=== PATIENT | female | born 1975 | race Asian ===

== ENCOUNTER 2019-12-07 07:41 | Outpatient (REF) | payer MEDICAID, SELFPAY | END 2019-12-07 07:42 | disposition home or self-care (01) | LOC: HO.LAB 07:41 | PROVIDERS: PCP Internal Medicine; Visit Provider Internal Medicine | DX: Z20.828 Contact with and (suspected) exposure to other viral communicable diseases (principal) | CPT/HCPCS: 87635 ==

== ENCOUNTER 2021-07-29 16:16 | Emergency (ER) | payer MEDICAID, SELFPAY ==
--- NOTE | ~2021-07-29 | CT_ITS ---
EXAMINATION: CT HEAD WITHOUT CONTRAST CLINICAL INFORMATION: New onset headache COMPARISON: None TECHNIQUE: Imaging was performed from the skull base to vertex without intravenous administration of contrast. This CT examination was performed using dose optimization techniques as appropriate, variously including the following: *Automated exposure control *Adjustment of mA and/or kV according to patient size (this includes techniques or standardized protocols for targeted exams where dose is matched to indication/reason for exam; i.e. extremities or head) *Use of iterative reconstruction technique Total exam dose length product: 805 mGy-cm FINDINGS: No intra or extra-axial fluid collection, hemorrhage, or mass. No ventriculomegaly. No midline shift or herniation. Basal cisterns are patent. Mancuso-white matter differentiation is maintained. No territorial encephalomalacia. No significant volume loss. There is no abnormal attenuation within the brain parenchyma. No calvarial fracture or soft tissue abnormality. Mastoid air cells are normally aerated. Lobulated mucosal thickening in the maxillary antra and ethmoid air cells. Mild mucosal thickening in the sphenoid sinuses. CT/CT head/brain wo con IMPRESSION: 1. No acute intracranial pathology. 2. Mild paranasal sinus disease. No air-fluid levels.
--- NOTE | ~2021-07-29 | XR_ITS ---
EXAMINATION: XR CHEST CLINICAL INFORMATION: Cough COMPARISON: None TECHNIQUE: 2 views of the chest were obtained. FINDINGS: There is mild cardiac enlargement. There is no evidence of CHF. No infiltrates, effusions or lung masses are seen. XR/XR chest 2V IMPRESSION: Mild cardiac enlargement. No acute intrathoracic disease.
[2021-07-29 16:19] VITALS: BP 176/93; PULSE 66; RESP 20; TEMP 36.4; O2SAT 97; BMI 36.0
[2021-07-29 17:43] VITALS: BP 168/106
[2021-07-29 18:02] VITALS: BP 163/91; PULSE 65; RESP 16; O2SAT 97
--- NOTE | 2021-07-29 18:24 | ECG_ITS ---
Test Reason : HYPERTENSION Blood Pressure : / mmHG Vent. Rate : 076 BPM Atrial Rate : 076 BPM P-R Int : 192 ms QRS Dur : 088 ms QT Int : 432 ms P-R-T Axes : 050 017 021 degrees QTc Int : 486 ms Sinus rhythm with marked sinus arrhythmia with Premature ventricular complexes Cannot rule out Anterior infarct (cited on or before 09-MAR-2018) Abnormal ECG When compared with ECG of 09-MAR-2018 20:18, Premature ventricular complexes are now Present Nonspecific T wave abnormality now evident in Inferior leads T wave inversion less evident in Lateral leads Referred By: Rosina Bhardwaj Electronically Signed By:FARHAN PATEL MD
[2021-07-29 19:05] LABS: Appearance Urine HAZY; Color Urine STRAW; Glucose Urine UA NEG (NEG); Leukocyte Esterase Urine 1+ (NEG); Nitrite Urine NEG (NEG); Specific Gravity - Urine <= 1.005 (1.005-1.025); UACC Culture Trigger YES; Urine Blood 3+ (NEG); Urine Ketones NEG (NEG); Urine Protein NEG (NEG-TRACE)
[2021-07-29 19:10] LABS: UPreg QC Valid YES; Urine Pregnancy NEGATIVE (NEGATIVE)
--- NOTE | 2021-07-29 19:18 | ED.GENADULT ---
HPI - General Adult General Chief complaint: General Medical <BENITA Collins - Last Filed: 07/29/21 21:00> Stated complaint: High BP <BENITA Collins Last Filed: 07/29/21 21:00> Time Seen by Provider: 07/29/21 18:04 <BENITA Collins Last Filed: 07/29/21 21:00> Source: patient <BENITA Collins Last Filed: 07/29/21 21:00> Mode of arrival: ambulatory <BENITA Collins Last Filed: 07/29/21 21:00> Limitations: no limitations <BENITA Collins Last Filed: 07/29/21 21:00> History of Present Illness HPI narrative: 46-year-old female with a history of hypertension and hyperthyroid presents for high blood pressure at home today. Patient has also had ?pressure? in her head. Patient states she woke up with ?pressure? in her head, took her blood pressure and it was 178/110. She took her nifedipine, which she takes daily at 30 mg. Her blood pressure did not go down, then she took her labetalol, which she takes 200 mg twice a day. Her blood pressure was 163/91, so she came in. States her blood pressure normally runs 130/80. No fever, no stiff neck, no headache, no chest pain, no shortness of breath, no abdominal pain, no nausea, vomiting, diarrhea. And no falls. No visual changes. States she has had a cough for 4 days, and had a negative COVID test at home. Her sister 3 weeks ago, states her sister was 8 months and due to complications of hypertension. Patient's last menstrual period started today <BENITA Collins Last Filed: 07/29/21 21:00> Related Data Allergies/adverse reactions: Allergies Allergy/AdvReac Type Severity Reaction Status Date / Time No Known Allergies Allergy Unverified 11/12/19 17:06 [No Known Allergies*] <BENITA Collins Last Filed: 07/29/21 21:00> Review of Systems Constitutional: Constitutional: Denies body ache(s), Denies chills, Denies fatigue, Denies fever(s), Denies headache(s), Denies malaise and Denies weakness <BENITA Collins Last Filed: 07/29/21 21:00> Eyes: Eyes: Denies blurry vision, Denies change in vision, Denies diplopia and Denies loss of vision <BENITA Collins Last Filed: 07/29/21 21:00> ENT: Reports Normal hearing present, Denies vertigo, Denies dizziness, Denies otalgia, Denies headache(s), Denies mouth pain, Denies disequilibrium, Denies post nasal drip, Denies sinus pain, Denies sinus pressure, Denies sore throat and Denies throat swelling <BENITA Collins Last Filed: 07/29/21 21:00> Comments: pressure in head, not headache <BENITA Collins Last Filed: 07/29/21 21:00> Cardiovascular: Cardiovascular: Denies chest pain, Denies syncope, Denies leg edema, Denies lightheadedness, Denies Loss of Consciousness, Denies palpitations and Denies dyspnea <BENITA Collins Last Filed: 07/29/21 21:00> Respiratory: Respiratory: Denies chest congestion, Reports cough and Denies dyspnea <BENITA Collins Last Filed: 07/29/21 21:00> Gastrointestinal: Gastrointestinal: Denies abdominal pain, Denies hematochezia, Denies constipation, Denies diarrhea and Denies vomiting <BENITA Collins Last Filed: 07/29/21 21:00> Musculoskeletal: Musculoskeletal: Reports no additional musculoskeletal complaints, Denies abnormal gait, Denies numbness and Denies tingling <BENITA Collins Last Filed: 07/29/21 21:00> Neurologic: Reports Normal hearing present, Denies Neuro-related abnormal movements, Denies Abnormal speech present, Denies abnormal gait, Denies confusion, Denies vertigo, Denies dizziness, Denies syncope, Denies headache(s), Denies focal weakness, Denies loss of vision, Denies numbness, Denies Other visual disturbances, Denies seizure-like activity, Denies Sensory deficit (Neuro), Denies tingling, Denies paresthesias, Denies disequilibrium and Denies weakness <BENITA Collins Last Filed: 07/29/21 21:00> Psychiatric: Psychiatric: Denies anxiety, Denies confusion and Denies depression <BENITA Collins Last Filed: 07/29/21 21:00> Endocrine: Endocrine: Denies fatigue and Denies palpitations <BENITA Collins Last Filed: 07/29/21 21:00> Allergic/Immunologic: Allergic/Immunologic: Denies throat swelling <BENITA Collins Last Filed: 07/29/21 21:00> [facility] Past Medical History [facility] Narrative: Hypertension Hypothyroid <BENITA Collins Last Filed: 07/29/21 21:00> Social History Social History: Social History Advance Directives: No Advance Directives Information Provided: Yes <BENITA Collins Last Filed: 07/29/21 21:00> Physical Exam ED Vital Signs: Vital Signs - 24 hr 07/29/21 16:19 07/29/21 17:43 07/29/21 18:02 Temperature 97.6 F Pulse Rate 66 65 Respiratory Rate 20 16 Blood Pressure 176/93 H 168/106 H 163/91 H Pulse Oximetry 97 97 07/29/21 20:11 Temperature 97.6 F Pulse Rate 60 Respiratory Rate 18 Blood Pressure 153/90 H Pulse Oximetry 95 BMI result Body Mass Index 36.0 <BENITA Collins Last Filed: 07/29/21 21:00> Vital Signs - 24 hr 07/29/21 16:19 07/29/21 17:43 07/29/21 18:02 Temperature 97.6 F Pulse Rate 66 65 Respiratory Rate 20 16 Blood Pressure 176/93 H 168/106 H 163/91 H Pulse Oximetry 97 97 07/29/21 20:11 Temperature 97.6 F Pulse Rate 60 Respiratory Rate 18 Blood Pressure 153/90 H Pulse Oximetry 95 BMI result Body Mass Index 36.0 <Twin Askew MD - Last Filed: 07/29/21 22:24> Const General: no acute distress, alert and awake; No confusion <BENITA Collins Last Filed: 07/29/21 21:00> Nutritional Appearance: obese <BENITA Collins Last Filed: 07/29/21 21:00> Orientation/consciousness: oriented to person, oriented to place, oriented to time, patient oriented x3 and No confusion <BENITA Collins Last Filed: 07/29/21 21:00> Limitations: no limitations <BENITA Collins Last Filed: 07/29/21 21:00> HENMT Head: Yes normal to inspection, Yes normocephalic and Yes atraumatic <Rosina Bhardwaj [facility] Last Filed: 07/29/21 21:00> Ears: hearing grossly normal bilaterally, external ears normal, TM's normal bilaterally and EAC's normal <Rosina Bhardwaj [facility] Last Filed: 07/29/21 21:00> General nose exam: Normal external nose present <BENITA Collins Last Filed: 07/29/21 21:00> Face and sinus: Yes normal facial exam and Yes sinuses nontender <Rosina Bhardwaj [facility] Last Filed: 07/29/21 21:00> Mouth: Normal oral and palatal mucosa present <BENITA Collins Last Filed: 07/29/21 21:00> Throat: Yes posterior oropharynx normal <Rosina Bhardwaj [facility] Last Filed: 07/29/21 21:00> Eyes Conjunctivae: conjunctivae normal <BENITA Collins Last Filed: 07/29/21 21:00> Pupils: Equal, round and reactive pupils present <BENITA Collins Last Filed: 07/29/21 21:00> EOM: EOMs intact bilaterally and No Nystagmus present <BENITA Collins Last Filed: 07/29/21 21:00> Neck Neck: Yes full ROM, Yes no lymphadenopathy and Yes supple <Rosina Bhardwaj [facility] Last Filed: 07/29/21 21:00> Resp Effort & Inspection: normal respiratory effort and able to speak in complete sentences <BENITA Collins Last Filed: 07/29/21 21:00> Auscultation: clear to auscultation bilaterally, no crackles, no rales, no rhonchi and no wheezes <BENITA Collins Last Filed: 07/29/21 21:00> Cardio Rate: regular rate <BENITA Collins - Last Filed: 07/29/21 21:00> Rhythm: regular rhythm <BENITA Collins Last Filed: 07/29/21 21:00> Heart sounds: S1 normal heart sound present and S2 normal heart sound present <BENITA Collins Last Filed: 07/29/21 21:00> GI Inspection: Yes normal to inspection <BENITA Collins Last Filed: 07/29/21 21:00> Palpation (GI): Soft to palpation, nontender, no guarding and not rigid <BENITA Collins Last Filed: 07/29/21 21:00> Percussion: Yes normal to percussion <Rosina Bhardwaj [facility] Last Filed: 07/29/21 21:00> Auscultation: normal bowel sounds <BENITA Collins Last Filed: 07/29/21 21:00> Skin General skin exam: no rashes or lesions noted <BENITA Collins Last Filed: 07/29/21 21:00> Neuro General: oriented to person, oriented to place, oriented to time, patient oriented x3, gait normal, Normal light touch and pain sensation and No confusion <BENITA Collins Last Filed: 07/29/21 21:00> Cranial nerves: Yes CN's II-XII intact bilaterally, Yes Facial sensation intact/muscles of mastication intact, Yes Equal, round and reactive pupils present, Yes Normal accommodation reflex present, Yes Bilaterally intact EOM present, Yes Nystagmus not present, Yes Normal facial strength present, Yes Midline tongue present, Yes Normal hearing present, Yes Ability to bilaterally rotate head present, Yes Ability to bilaterally elevate shoulders present and No Nystagmus present <Rosina Bhardwaj [facility] Last Filed: 07/29/21 21:00> Cognition (Neuro): normal cognition <BENITA Collins Last Filed: 07/29/21 21:00> Speech: No Abnormal speech present <BENITA Collins Last Filed: 07/29/21 21:00> Gait exam (Neuro): Normal gait present <BENITA Collins Last Filed: 07/29/21 21:00> Motor exam (neuro): 5/5 motor strength present throughout, Pronator motor function not present and no tremor noted <BENITA Collins - Last Filed: 07/29/21 21:00> Sensory Exam: No Sensory deficit (Neuro) <BENITA Collins - Last Filed: 07/29/21 21:00> Deep tendon reflexes (DTR's): Right brachioradialis reflex intensity grade: 1+, Left brachioradialis reflex intensity grade: 1+, Right patellar reflex intensity grade: 1+ and Left patellar reflex intensity grade: 1+ <BENITA Collins - Last Filed: 07/29/21 21:00> Coordination: [id number] test normal and [id number] test normal <BENITA Collins - Last Filed: 07/29/21 21:00> Romberg Test: Negative <BENITA Collins - Last Filed: 07/29/21 21:00> Pupils: Normal pupillary reactivity/response: bilateral <BENITA Collins - Last Filed: 07/29/21 21:00> Extrem General: Yes normal to inspection and Yes full ROM <BENITA Collins - Last Filed: 07/29/21 21:00> Psych Appearance: grossly normal <BENITA Collins - Last Filed: 07/29/21 21:00> Mental Status: mental status grossly normal <BENITA Collins Last Filed: 07/29/21 21:00> Speech and movement: Normal speech and movement present <BENITA Collins Last Filed: 07/29/21 21:00> Affect: Anxious affect present <BENITA Collins Last Filed: 07/29/21 21:00> Attitude: cooperative <BENITA Collins - Last Filed: 07/29/21 21:00> Thought process: Normal thought process present <BENITA Collins Last Filed: 07/29/21 21:00> Course Course Course Narrative: 46-year-old female presents for concern for high blood pressure. Patient woke up with pressure in her head, and had high blood pressures at home. Patient is tired and anxious appearing, states that her sister while from complications of hypertension just 3 weeks ago. Patient was initially hypertensive at 176/93, most recent blood pressure measurement is 161/84 Patient has a benign neurological exam. Will get COVID, flu, EKG, chest x-ray because patient endorses cough, troponin, head CT, urine, labs, rule out Will rule out renal info sufficiency, will rule out myocardial injury, will look for proteinuria or hematuria to rule out renal injury, chest x-ray will rule out pulmonary edema for heart failure, CT will rule out hemorrhage <BENITA Collins - Last Filed: 07/29/21 21:00> Reevaluation(s) Reevaluation #1: Patient's CBC and chemistries are unremarkable, troponin negative, EKG is not ischemic. Patient is COVID positive Patient's urine shows mild UTI Chest x-ray shows cardiomegaly, with no pleural effusions, no infiltrate or consolidation Awaiting head CT and repeat troponin Signed the patient out to Dr. Askew, who will determine her care from here FINDINGS: There is mild cardiac enlargement. There is no evidence of CHF. No infiltrates, effusions or lung masses are seen. XR/XR chest 2V IMPRESSION: Mild cardiac enlargement. No acute intrathoracic disease. <BENITA Collins - Last Filed: 07/29/21 21:00> Reevaluation #2: Head CT is unremarkable repeat troponin is negative, no CP, no SOB, patient is positive for COVID infection has been having dry cough for the last 3- 4 days, O2 saturation is 100%, chest x-ray shows no lung pathology. Will reassure and discharge home. <Twin Askew MD - Last Filed: 07/29/21 22:24> Medical Decision Making Lab Data Result diagrams: : 07/29/21 19:13 07/29/21 19:13 <BENITA Collins - Last Filed: 07/29/21 21:00> Labs: Lab Results 07/29/21 07/29/21 07/29/21 Range/Units 18:58 18:59 19:13 WBC 6.3 (4.8-10.8) X10*3/uL RBC 4.59 (4.20-5.50) X10*6/uL Hgb 11.4 L (12.0-16.0) g/dl Hct 34.1 L (37.0-47.0) % MCV 74.3 L (80.0-98.0) fL MCH 24.8 L (27.0-33.0) pg MCHC 33.4 (31.0-35.0) g/dl RDW 13.9 (11.0-16.0) % Plt Count 294 (160-400) X10*3/uL MPV 9.3 L (9.4-12.3) fL Immature Gran % (Auto) 0.2 (0.0-0.4) % Neut % (Auto) 62.9 (45-73) % Lymph % (Auto) 26.2 (20-40) % Cocke % (Auto) 7.1 (2-11) % Eos % (Auto) 3.3 (0-4) % Baso % (Auto) 0.3 (0-2) % Lymph # (Auto) 1.7 (1.2-4.9) X10*3/uL Cocke # (Auto) 0.5 (0.1-1.2) X10*3/uL Eos # (Auto) 0.2 (0.0-0.4) X10*3/uL Baso # (Auto) 0.0 (0.0-0.2) X10*3/uL Abs Immat Gran (auto) 0.01 (0.00-0.03) X10*3/uL Absolute Neuts (auto) 4.0 (2.0-8.3) x10*3/uL Absolute Nucleated RBC 0.000 (0.0-0.012) X10*3/uL Nucleated RBC % (auto) 0.0 (0.0-0.2) /100WBC Sodium (135-145) mmol/L Potassium (3.3-5.1) mmol/L Chloride (96-108) mmol/L Carbon Dioxide (22-29) mmol/L Anion Gap (12-20) BUN (9-16) mg/dL Creatinine (0.5-1.4) mg/dL Estim Creat Clear Calc Estimated GFR Random Glucose (60-115) mg/dL Calcium (8.4-10.2) mg/dL Total Bilirubin (0.0-1.0) mg/dL AST (5-31) U/L ALT (0-31) U/L Alkaline Phosphatase (39-117) U/L Troponin I High Sens (<3.5-17.0) ng/L Total Protein (6.5-8.0) g/dL Albumin (3.5-5.0) g/dL Urine Color STRAW Urine Appearance HAZY Urine pH 6.0 (5.0-8.0) Ur Specific [place] <= 1.005 (1.005-1.025) Urine Protein NEG (NEG-TRACE) MG/DL Urine Glucose (UA) NEG (NEG) MG/DL Urine Ketones NEG (NEG) MG/DL Urine Blood 3+ H (NEG) Urine Nitrite NEG (NEG) Ur Leukocyte Esterase 1+ H (NEG) Urine RBC 0-2 (0) /HPF Urine WBC 5-9 H (0-4) /HPF Urine WBC Clumps NOTED Ur Squamous Epith Cells 1+ /LPF Urine Bacteria NONE /LPF Urine Test NEGATIVE (NEGATIVE) COVID-19 (EBENEZER) (Negative) COVID-19 Clin Com Influenza Type A (IVAN) (Negative) Influenza Type B (IVAN) (Negative) Influenza A & B Note 07/29/21 07/29/21 07/29/21 Range/Units 19:13 19:13 19:13 WBC (4.8-10.8) X10*3/uL RBC (4.20-5.50) X10*6/uL Hgb (12.0-16.0) g/dl Hct (37.0-47.0) % MCV (80.0-98.0) fL MCH (27.0-33.0) pg MCHC (31.0-35.0) g/dl RDW (11.0-16.0) % Plt Count (160-400) X10*3/uL MPV (9.4-12.3) fL Immature Gran % (Auto) (0.0-0.4) % Neut % (Auto) (45-73) % Lymph % (Auto) (20-40) % Cocke % (Auto) (2-11) % Eos % (Auto) (0-4) % Baso % (Auto) (0-2) % Lymph # (Auto) (1.2-4.9) X10*3/uL Cocke # (Auto) (0.1-1.2) X10*3/uL Eos # (Auto) (0.0-0.4) X10*3/uL Baso # (Auto) (0.0-0.2) X10*3/uL Abs Immat Gran (auto) (0.00-0.03) X10*3/uL Absolute Neuts (auto) (2.0-8.3) x10*3/uL Absolute Nucleated RBC (0.0-0.012) X10*3/uL Nucleated RBC % (auto) (0.0-0.2) /100WBC Sodium 135 (135-145) mmol/L Potassium 3.4 (3.3-5.1) mmol/L Chloride 105 (96-108) mmol/L Carbon Dioxide 20 L (22-29) mmol/L Anion Gap 13 (12-20) BUN 10 (9-16) mg/dL Creatinine 0.68 (0.5-1.4) mg/dL Estim Creat Clear Calc 131.1 Estimated GFR > 60 Random Glucose 92 (60-115) mg/dL Calcium 8.5 (8.4-10.2) mg/dL Total Bilirubin 0.2 (0.0-1.0) mg/dL AST 21 (5-31) U/L ALT 16 (0-31) U/L Alkaline Phosphatase 64 (39-117) U/L Troponin I High Sens < 3.5 (<3.5-17.0) ng/L Total Protein 6.9 (6.5-8.0) g/dL Albumin 4.0 (3.5-5.0) g/dL Urine Color Urine Appearance Urine pH (5.0-8.0) Ur Specific [place] (1.005-1.025) Urine Protein (NEG-TRACE) MG/DL Urine Glucose (UA) (NEG) MG/DL Urine Ketones (NEG) MG/DL Urine Blood (NEG) Urine Nitrite (NEG) Ur Leukocyte Esterase (NEG) Urine RBC (0) /HPF Urine WBC (0-4) /HPF Urine WBC Clumps Ur Squamous Epith Cells /LPF Urine Bacteria /LPF Urine Test (NEGATIVE) COVID-19 (EBENEZER) (Negative) COVID-19 Clin Com Influenza Type A (IVAN) Negative (Negative) Influenza Type B (IVAN) Negative (Negative) Influenza A & B Note See Note 06/04/22 06/04/22 Range/Units 19:13 20:52 WBC (4.8-10.8) X10*3/uL RBC (4.20-5.50) X10*6/uL Hgb (12.0-16.0) g/dl Hct (37.0-47.0) % MCV (80.0-98.0) fL MCH (27.0-33.0) pg MCHC (31.0-35.0) g/dl RDW (11.0-16.0) % Plt Count (160-400) X10*3/uL MPV (9.4-12.3) fL Immature Gran % (Auto) (0.0-0.4) % Neut % (Auto) (45-73) % Lymph % (Auto) (20-40) % Cocke % (Auto) (2-11) % Eos % (Auto) (0-4) % Baso % (Auto) (0-2) % Lymph # (Auto) (1.2-4.9) X10*3/uL Cocke # (Auto) (0.1-1.2) X10*3/uL Eos # (Auto) (0.0-0.4) X10*3/uL Baso # (Auto) (0.0-0.2) X10*3/uL Abs Immat Gran (auto) (0.00-0.03) X10*3/uL Absolute Neuts (auto) (2.0-8.3) x10*3/uL Absolute Nucleated RBC (0.0-0.012) X10*3/uL Nucleated RBC % (auto) (0.0-0.2) /100WBC Sodium (135-145) mmol/L Potassium (3.3-5.1) mmol/L Chloride (96-108) mmol/L Carbon Dioxide (22-29) mmol/L Anion Gap (12-20) BUN (9-16) mg/dL Creatinine (0.5-1.4) mg/dL Estim Creat Clear Calc Estimated GFR Random Glucose (60-115) mg/dL Calcium (8.4-10.2) mg/dL Total Bilirubin (0.0-1.0) mg/dL AST (5-31) U/L ALT (0-31) U/L Alkaline Phosphatase (39-117) U/L Troponin I High Sens < 3.5 (<3.5-17.0) ng/L Total Protein (6.5-8.0) g/dL Albumin (3.5-5.0) g/dL Urine Color Urine Appearance Urine pH (5.0-8.0) Ur Specific [place] (1.005-1.025) Urine Protein (NEG-TRACE) MG/DL Urine Glucose (UA) (NEG) MG/DL Urine Ketones (NEG) MG/DL Urine Blood (NEG) Urine Nitrite (NEG) Ur Leukocyte Esterase (NEG) Urine RBC (0) /HPF Urine WBC (0-4) /HPF Urine WBC Clumps Ur Squamous Epith Cells /LPF Urine Bacteria /LPF Urine Test (NEGATIVE) COVID-19 (EBENEZER) Positive A (Negative) COVID-19 Clin Com See Note Influenza Type A (IVAN) (Negative) Influenza Type B (IVAN) (Negative) Influenza A & B Note <BENITA Collins - Last Filed: 07/29/21 21:00> Lab Results 07/29/21 07/29/21 07/29/21 Range/Units 18:58 18:59 19:13 WBC 6.3 (4.8-10.8) X10*3/uL RBC 4.59 (4.20-5.50) X10*6/uL Hgb 11.4 L (12.0-16.0) g/dl Hct 34.1 L (37.0-47.0) % MCV 74.3 L (80.0-98.0) fL MCH 24.8 L (27.0-33.0) pg MCHC 33.4 (31.0-35.0) g/dl RDW 13.9 (11.0-16.0) % Plt Count 294 (160-400) X10*3/uL MPV 9.3 L (9.4-12.3) fL Immature Gran % (Auto) 0.2 (0.0-0.4) % Neut % (Auto) 62.9 (45-73) % Lymph % (Auto) 26.2 (20-40) % Cocke % (Auto) 7.1 (2-11) % Eos % (Auto) 3.3 (0-4) % Baso % (Auto) 0.3 (0-2) % Lymph # (Auto) 1.7 (1.2-4.9) X10*3/uL Cocke # (Auto) 0.5 (0.1-1.2) X10*3/uL Eos # (Auto) 0.2 (0.0-0.4) X10*3/uL Baso # (Auto) 0.0 (0.0-0.2) X10*3/uL Abs Immat Gran (auto) 0.01 (0.00-0.03) X10*3/uL Absolute Neuts (auto) 4.0 (2.0-8.3) x10*3/uL Absolute Nucleated RBC 0.000 (0.0-0.012) X10*3/uL Nucleated RBC % (auto) 0.0 (0.0-0.2) /100WBC Sodium (135-145) mmol/L Potassium (3.3-5.1) mmol/L Chloride (96-108) mmol/L Carbon Dioxide (22-29) mmol/L Anion Gap (12-20) BUN (9-16) mg/dL Creatinine (0.5-1.4) mg/dL Estim Creat Clear Calc Estimated GFR Random Glucose (60-115) mg/dL Calcium (8.4-10.2) mg/dL Total Bilirubin (0.0-1.0) mg/dL AST (5-31) U/L ALT (0-31) U/L Alkaline Phosphatase (39-117) U/L Troponin I High Sens (<3.5-17.0) ng/L Total Protein (6.5-8.0) g/dL Albumin (3.5-5.0) g/dL Urine Color STRAW Urine Appearance HAZY Urine pH 6.0 (5.0-8.0) Ur Specific [place] <= 1.005 (1.005-1.025) Urine Protein NEG (NEG-TRACE) MG/DL Urine Glucose (UA) NEG (NEG) MG/DL Urine Ketones NEG (NEG) MG/DL Urine Blood 3+ H (NEG) Urine Nitrite NEG (NEG) Ur Leukocyte Esterase 1+ H (NEG) Urine RBC 0-2 (0) /HPF Urine WBC 5-9 H (0-4) /HPF Urine WBC Clumps NOTED Ur Squamous Epith Cells 1+ /LPF Urine Bacteria NONE /LPF Urine Test NEGATIVE (NEGATIVE) COVID-19 (EBENEZER) (Negative) COVID-19 Clin Com Influenza Type A (IVAN) (Negative) Influenza Type B (IVAN) (Negative) Influenza A & B Note 07/29/21 07/29/21 07/29/21 Range/Units 19:13 19:13 19:13 WBC (4.8-10.8) X10*3/uL RBC (4.20-5.50) X10*6/uL Hgb (12.0-16.0) g/dl Hct (37.0-47.0) % MCV (80.0-98.0) fL MCH (27.0-33.0) pg MCHC (31.0-35.0) g/dl RDW (11.0-16.0) % Plt Count (160-400) X10*3/uL MPV (9.4-12.3) fL Immature Gran % (Auto) (0.0-0.4) % Neut % (Auto) (45-73) % Lymph % (Auto) (20-40) % Cocke % (Auto) (2-11) % Eos % (Auto) (0-4) % Baso % (Auto) (0-2) % Lymph # (Auto) (1.2-4.9) X10*3/uL Cocke # (Auto) (0.1-1.2) X10*3/uL Eos # (Auto) (0.0-0.4) X10*3/uL Baso # (Auto) (0.0-0.2) X10*3/uL Abs Immat Gran (auto) (0.00-0.03) X10*3/uL Absolute Neuts (auto) (2.0-8.3) x10*3/uL Absolute Nucleated RBC (0.0-0.012) X10*3/uL Nucleated RBC % (auto) (0.0-0.2) /100WBC Sodium 135 (135-145) mmol/L Potassium 3.4 (3.3-5.1) mmol/L Chloride 105 (96-108) mmol/L Carbon Dioxide 20 L (22-29) mmol/L Anion Gap 13 (12-20) BUN 10 (9-16) mg/dL Creatinine 0.68 (0.5-1.4) mg/dL Estim Creat Clear Calc 131.1 Estimated GFR > 60 Random Glucose 92 (60-115) mg/dL Calcium 8.5 (8.4-10.2) mg/dL Total Bilirubin 0.2 (0.0-1.0) mg/dL AST 21 (5-31) U/L ALT 16 (0-31) U/L Alkaline Phosphatase 64 (39-117) U/L Troponin I High Sens < 3.5 (<3.5-17.0) ng/L Total Protein 6.9 (6.5-8.0) g/dL Albumin 4.0 (3.5-5.0) g/dL Urine Color Urine Appearance Urine pH (5.0-8.0) Ur Specific [place] (1.005-1.025) Urine Protein (NEG-TRACE) MG/DL Urine Glucose (UA) (NEG) MG/DL Urine Ketones (NEG) MG/DL Urine Blood (NEG) Urine Nitrite (NEG) Ur Leukocyte Esterase (NEG) Urine RBC (0) /HPF Urine WBC (0-4) /HPF Urine WBC Clumps Ur Squamous Epith Cells /LPF Urine Bacteria /LPF Urine Test (NEGATIVE) COVID-19 (EBENEZER) (Negative) COVID-19 Clin Com Influenza Type A (IVAN) Negative (Negative) Influenza Type B (IVAN) Negative (Negative) Influenza A & B Note See Note 07/29/21 07/29/21 Range/Units 19:13 20:52 WBC (4.8-10.8) X10*3/uL RBC (4.20-5.50) X10*6/uL Hgb (12.0-16.0) g/dl Hct (37.0-47.0) % MCV (80.0-98.0) fL MCH (27.0-33.0) pg MCHC (31.0-35.0) g/dl RDW (11.0-16.0) % Plt Count (160-400) X10*3/uL MPV (9.4-12.3) fL Immature Gran % (Auto) (0.0-0.4) % Neut % (Auto) (45-73) % Lymph % (Auto) (20-40) % Cocke % (Auto) (2-11) % Eos % (Auto) (0-4) % Baso % (Auto) (0-2) % Lymph # (Auto) (1.2-4.9) X10*3/uL [place]ke # (Auto) (0.1-1.2) X10*3/uL Eos # (Auto) (0.0-0.4) X10*3/uL Baso # (Auto) (0.0-0.2) X10*3/uL Abs Immat Gran (auto) (0.00-0.03) X10*3/uL Absolute Neuts (auto) (2.0-8.3) x10*3/uL Absolute Nucleated RBC (0.0-0.012) X10*3/uL Nucleated RBC % (auto) (0.0-0.2) /100WBC Sodium (135-145) mmol/L Potassium (3.3-5.1) mmol/L Chloride (96-108) mmol/L Carbon Dioxide (22-29) mmol/L Anion Gap (12-20) BUN (9-16) mg/dL Creatinine (0.5-1.4) mg/dL Estim Creat Clear Calc Estimated GFR Random Glucose (60-115) mg/dL Calcium (8.4-10.2) mg/dL Total Bilirubin (0.0-1.0) mg/dL AST (5-31) U/L ALT (0-31) U/L Alkaline Phosphatase (39-117) U/L Troponin I High Sens < 3.5 (<3.5-17.0) ng/L Total Protein (6.5-8.0) g/dL Albumin (3.5-5.0) g/dL Urine Color Urine Appearance Urine pH (5.0-8.0) Ur Specific [place] (1.005-1.025) Urine Protein (NEG-TRACE) MG/DL Urine Glucose (UA) (NEG) MG/DL Urine Ketones (NEG) MG/DL Urine Blood (NEG) Urine Nitrite (NEG) Ur Leukocyte Esterase (NEG) Urine RBC (0) /HPF Urine WBC (0-4) /HPF Urine WBC Clumps Ur Squamous Epith Cells /LPF Urine Bacteria /LPF Urine Test (NEGATIVE) COVID-19 (EBENEZER) Positive A (Negative) COVID-19 Clin Com See Note Influenza Type A (IVAN) (Negative) Influenza Type B (IVAN) (Negative) Influenza A & B Note <Twin Askew MD - Last Filed: 07/29/21 22:24> Imaging Data Head CT: Attestation: I personally reviewed and interpreted this imaging study as follows: <Twin Askew MD - Last Filed: 07/29/21 22:24> Radiologist's impression: No acute intracranial pathology. <Twin Askew MD - Last Filed: 07/29/21 22:24> ECG Data Interpretation: Sinus with a rate of 76, NC interval 192, QRS 88, QTC 486, normal axis, no ST depression or elevation, no T-wave abnormalities, there are PACs <BENITA Collins - Last Filed: 07/29/21 21:00> Discharge Plan Discharge Clinical Impression: Hypertension, COVID-19, UTI (urinary tract infection), Cardiomegaly <BENITA Collins - Last Filed: 07/29/21 21:00> Patient Disposition: Home, Self-Care <BENITA Collins - Last Filed: 07/29/21 21:00> Instructions: Covid-19 Viral Syndrome and Novel Coronavirus (ED) Hey/Ath <BENITA Collins - Last Filed: 07/29/21 21:00> Additional Instructions: Self-quarantine for 10 days, where face mask at all times, frequent handwashing, keep social distancing. <BENITA Collins - Last Filed: 07/29/21 21:00> Referrals: Shelli Huynh MD [Primary Care Provider] - <BENITA Collins - Last Filed: 07/29/21 21:00>
[2021-07-29 19:19] LABS: RBC Urine 0-2 /HPF (0); Squamous Epithelial Cell Urine 1+ /LPF; WBC Clumps Urine NOTED
[2021-07-29 19:23] LABS: MANUAL DIFF FLAG NO
[2021-07-29 19:25] LABS: Basophils Percent Auto 0.3 % (0-2); Eosinophils Absolute Auto 0.2 X10*3/uL (0.0-0.4); Eosinophils Percent Auto 3.3 % (0-4); Hematocrit 34.1 % (37.0-47.0); Hemoglobin 11.4 g/dl (12.0-16.0); Imm Gran Abs Auto 0.01 X10*3/uL (0.00-0.03); Imm Gran Pct Auto 0.2 % (0.0-0.4); Lymphocytes Absolute Auto 1.7 X10*3/uL (1.2-4.9); Lymphocytes Percent Auto 26.2 % (20-40); Mean Corpuscular HGB Conc 33.4 g/dl (31.0-35.0); Mean Corpuscular Hemoglobin 24.8 pg (27.0-33.0); Mean Corpuscular Volume 74.3 fL (80.0-98.0); Mean Platelet Volume 9.3 fL (9.4-12.3); Monocytes Absolute Auto 0.5 X10*3/uL (0.1-1.2); Monocytes Percent Auto 7.1 % (2-11); Neutrophils Percent Auto 62.9 % (45-73); Platelet Count 294 X10*3/uL (160-400); Red Blood Count 4.59 X10*6/uL (4.20-5.50); Red Cell Distribution Width 13.9 % (11.0-16.0); White Blood Count 6.3 X10*3/uL (4.8-10.8)
[2021-07-29 19:43] LABS: Troponin-I High Sensitivity < 3.5 ng/L (<3.5-17.0)
[2021-07-29 19:53] LABS: COVID-19 Test Positive (Negative); IDNOW Serial# 16C4AD1C; Influenza A Negative (Negative); Influenza B2 Negative (Negative)
[2021-07-29 20:01] LABS: Alanine Aminotransferase 16 U/L (0-31); Alkaline Phosphatase 64 U/L (39-117); Anion Gap 13 (12-20); Aspartate Amino Transferase 21 U/L (5-31); Bilirubin Total 0.2 mg/dL (0.0-1.0); Blood Urea Nitrogen 10 mg/dL (9-16); Calcium 8.5 mg/dL (8.4-10.2); Carbon Dioxide 20 mmol/L (22-29); Chloride 105 mmol/L (96-108); Creatinine Clr Calc Pharmacy 131.1; Estimated Glomerular Filt Rate > 60; Glucose Random 92 mg/dL (60-115); Potassium 3.4 mmol/L (3.3-5.1); Sodium 135 mmol/L (135-145); Total Protein 6.9 g/dL (6.5-8.0)
[2021-07-29 20:11] VITALS: BP 153/90; PULSE 60; RESP 18; TEMP 36.4; O2SAT 95
[2021-07-29 21:25] LABS: Troponin-I High Sensitivity < 3.5 ng/L (<3.5-17.0)
[2021-07-29 22:32] VITALS: BP 133/78; PULSE 65; RESP 14; O2SAT 97
== END 2021-07-29 22:40 | disposition home or self-care (01) ==
PROVIDERS: Physician Assistant; Emergency Provider Emergency Medicine; PCP Internal Medicine
DX: U07.1 COVID-19 (principal); N39.0 Urinary tract infection, site not specified; I51.7 Cardiomegaly; R51.9 Headache, unspecified; I10 Essential (primary) hypertension; Z79.899 Other long term (current) drug therapy
CPT/HCPCS: 36415; 70450; 71046; 80053; 81001; 81025; 84484; 85025; 87086; 87502; 87635; 93005; 99284

== ENCOUNTER 2024-03-01 07:13 | Emergency (ER) | payer MEDICAID, SELFPAY ==
[2024-03-01 07:29] VITALS: BP 124/82; PULSE 72; RESP 16; TEMP 36.5; O2SAT 98; BMI 37.0
--- NOTE | 2024-03-01 10:01 | ED.SKABFB ---
HPI - Skin/Abscess/Foreign Bdy General Chief complaint: Skin/Abscess/Foreign Body Stated complaint: side pain Time Seen by Provider: 03/01/24 09:06 Source: patient, RN notes reviewed and old records reviewed Mode of arrival: ambulatory History of Present Illness ED Provider: Coby Aguilar PA-C HPI narrative: 29-year-old female with no significant past medical history presenting to the ED complaining of left axilla abscess x2 days. Reports increasing pain in chills. Denies fever, drainage from area, injury Related Data Previous Rx's ?Medication ?Instructions ?Recorded cephalexin 500 mg capsule 500 mg PO QID 7 days #28 caps 03/01/24 doxycycline hyclate 100 mg tablet 100 mg PO BID 7 days #14 tabs 03/01/24 Allergies Allergy/AdvReac Type Severity Reaction Status Date / Time No Known Allergies Allergy Verified 03/01/24 07:31 [No Known Allergies*] Review of Systems Review of Systems: Yes all other systems are reviewed and are negative Constitutional: Constitutional: Reports as per [facility] Past Medical History Attestation statement: The following information was validated with the patient. Source: old records reviewed Social History Social History Advance Directives: No Advance Directives Information Provided: No Physical Exam Vital Signs: Vital Signs: Last Vital Signs Temp 97.7 F 03/01/24 07:29 Pulse 72 03/01/24 07:29 Resp 16 03/01/24 07:29 BP 124/82 03/01/24 07:29 Pulse Ox 98 03/01/24 07:29 O2 Del Method Room Air 03/01/24 07:29 BMI result Body Mass Index 37.0 Const: General: cooperative, healthy appearing and no acute distress Orientation/consciousness: patient oriented x3 Limitations: no limitations HEENT: Head: Yes normal to inspection and Yes atraumatic Ears: hearing grossly normal bilaterally General nose exam: Normal external nose present Face and sinus: Yes normal facial exam Eyes: General: appearance normal, both eyes and all related structures EOM: EOMs intact bilaterally Neck: Neck: Yes normal visual inspection and Yes no meningeal signs Resp: Effort & Inspection: normal respiratory effort and no respiratory distress Cardio: Rate: regular rate Skin: Other: + fluctuant and pointing abscess noted to left axilla. No induration or overlying cellulitis/erythema. Tender to palpation Wounds: no wounds Neuro: General: patient oriented x3, tone normal and no meningeal signs Cranial nerves: Yes CN's II-XII intact bilaterally Gait exam (Neuro): Normal gait present Extrem: General: Yes normal to inspection Course Course Course Narrative: Results discussed with patient including worrisome signs and symptoms and strict return precautions, and when to return to the emergency department. They verbalized understanding and feel safe for discharge at this time. Medical Decision Making Medical Decision Making [facility] Narrative: 29-year-old female with no significant past medical history presenting to the ED complaining of left axilla abscess x2 days. On exam vital signs stable, NAD, nontoxic appearing, physical exam as noted above consistent with left axilla abscess requiring I&D. No appreciable overlying cellulitis. Lower suspicion for deeper infection Plan: I & D, p.o. antibiotic Please refer to course for remaining clinical decision making, interpretation of labs/imaging results, and discussions with consultants and/or family members. Differential Diagnosis Differential Diagnoses: The differential diagnosis associated with the presentation includes As above External Record Review External record reviewed: Inpatient record, Office record, Outpatient record, Prior outpatient labs, Prior outpatient radiology, Primary care record and Outside ED record Tests considered The following testing was considered but not selected: As above Prescription Management I considered prescription management with: Pain Medication and Antibiotic Chronic Conditions Patient?s care impacted by: Other Social Determinants Patient?s care significantly limited by Social Determinants of Health including: Other Social Determinant of Health Procedures Abscess I/D Site: other (axilla) Side (if applicable): left Local Anesthetic: lidocaine 1% Amount of anesthesia used (mL): 2 Technique: incised with blade Sent for culture/gram staining?: No Irrigation: Yes Packing used?: none Discharge Plan Discharge Clinical Impression: Abscess of skin or subcutaneous tissue Patient Disposition: Home, Self-Care Instructions: Abscess (ED), Abscess Follow-up (ED) Additional Instructions: You have an abscess that was drained today in the emergency department. Please take antibiotics as prescribed until completion Apply warm compresses Follow up with her doctor in Dermatology as needed If abscess grows, turns red, has persistent drainage, fever return to the ED Prescriptions: New cephalexin 500 mg capsule 500 mg PO QID 7 Days Qty: 28 0RF doxycycline hyclate 100 mg tablet 100 mg PO BID 7 Days Qty: 14 0RF Referrals: Shelli Huynh MD [Primary Care Provider] - 5 days Print Language: Faroese
[2024-03-01] MEDS: Lidocaine HCl 1 % MPF 5 ML VIAL INFILTRATI (10:11)
[2024-03-01 10:37] VITALS: BP 124/82; PULSE 72; RESP 16; TEMP 36.5; O2SAT 98
== END 2024-03-01 10:37 | disposition home or self-care (01) ==
PROVIDERS: Emergency Provider Emergency Medicine; PCP Internal Medicine
DX: L02.412 Cutaneous abscess of left axilla (principal); M79.622 Pain in left upper arm
CPT/HCPCS: 10060; 99282; 99284; J2003